=== PATIENT | male | born 1940 | race Caucasian/White ===

== ENCOUNTER 2017-12-30 11:19 | Emergency (ER) | payer OTHER ==
[2017-12-30 12:22] LABS: Urine Bacteria 20-50 /HPF (NONE SEEN); Urine Culture Reflex Order NOT NEEDED
[2017-12-30 12:31] LABS: Absolute Lymphocytes (CBC) 0.8 K/uL (0.7-4.9); Absolute Monocytes 0.7 K/uL (0.1-1.3); Absolute Neutrophil 8.6 K/uL (1.8-8.0); Basophils % 0.4 % (0-1.3); Eosinophils % 1.2 % (0-4.4); Hematocrit 44.9 % (39.6-49.0); Lymphocytes % 7.4 % (15.3-44.8); MCH 29.8 pg (27.0-35.0); MCV 87.1 fL (80-100); MPV 8.4 fL (7.6-11.3); Monocytes % 6.7 % (3.3-12.3); RBC Red Blood Cell Count 5.15 M/uL (4.33-5.43)
[2017-12-30 12:45] LABS: Potassium 3.9 mmol/L (3.5-5.1)
[2017-12-30 12:52] LABS: Urine Blood 1+ (NEG); Urine Glucose NEGATIVE (NEG); Urine Protein NEGATIVE (NEG)
--- NOTE | 2017-12-30 14:23 | ER ---
Nurse's Notes [facility] Name: Bora Stanley Age: 77 yrs Sex: Male : 1940 Arrival Date: 12/30/2017 Time: 11:22 Bed 6 Private MD: Diagnosis: Urinary Retention, UTI Presentation: 12/30 11:36 Presenting complaint: Patient states: "I think I have a urinary tract infection" aj1 Reports suprapubic pain, urinary frequency. Patient was seen at Urgent Care yesterday and diagnosed with UTI, he started taking Levaquin this morning, but states his pain and gotten worse and he feels feverish. Transition of care: patient was not received from another setting of care. Onset of symptoms was December 29, 2017. Risk Assessment: Do you want to hurt yourself or someone else? Patient reports no desire to harm self or others. Initial Sepsis Screen: Does the patient meet any 2 criteria? HR > 90 bpm. No. Patient's initial sepsis screen is negative. Does the patient have a suspected source of infection? Yes: Dysuria/Frequency/Urgency/UTI. Care prior to arrival: None. 11:36 Method Of Arrival: Ambulatory aj1 11:36 Acuity: DARIO 3 aj1 Triage Assessment: 11:41 General: Appears in no apparent distress. uncomfortable, Behavior is calm, cooperative, aj1 appropriate for age. Pain: Complains of pain in suprapubic area and pelvis Pain currently is 10 out of 10 on a pain scale. Neuro: Level of Consciousness is awake, alert, obeys commands. Cardiovascular: Patient's skin is warm and dry. Respiratory: Airway is patent Respiratory effort is even, unlabored, Respiratory pattern is regular, symmetrical. GI: Reports suprapubic pain. : Reports urinary frequency. Historical: - Allergies: 11:41 No Known Allergies; aj1 - Home Meds: 11:41 Metformin Oral [Active]; Simvastatin Oral [Active]; fenofibrate oral oral [Active]; aj1 metoprolol succinate oral oral [Active]; Ramipril Oral [Active]; clopidogrel oral oral [Active]; tamsulosin oral oral [Active]; Levaquin Oral [Active]; Zofran Oral [Active]; - PMHx: 11:41 Myocardial infarction; cardiac stent x3; Arthritis; Hyperlipidemia; Hypertension; aj1 Diabetes - NIDDM; diet controlled; - PSHx: 11:41 back surgery; aj1 - Immunization history:: Flu vaccine is up to date. - Social history:: Smoking status: Patient/guardian denies using tobacco. - Ebola Screening: : Patient denies travel to an Ebola-affected area in the 21 days before illness onset. Screenin:00 Abuse screen: Denies threats or abuse. Denies injuries from another. Nutritional bp screening: No deficits noted. Tuberculosis screening: No symptoms or risk factors identified. Fall Risk None identified. Assessment: 12:00 General: Appears in no apparent distress. uncomfortable, slender, Behavior is calm, bp cooperative, appropriate for age. Pain: Complains of pain in pelvis and suprapubic area. Neuro: Level of Consciousness is awake, alert, obeys commands, Oriented to person, place, time, situation, Appropriate for age. Cardiovascular: No deficits noted. Respiratory: Airway is patent Respiratory effort is even, unlabored, Respiratory pattern is regular, symmetrical. GI: Abdomen is non-distended, Bowel sounds present X 4 quads. Abd is soft X 4 quads. : Reports burning with urination, inability to void, urinary frequency. EENT: No deficits noted. Derm: No deficits noted. Musculoskeletal: Circulation, motion, and sensation intact. Range of motion: intact in all extremities. 13:00 Reassessment: Patient appears in no apparent distress at this time. Patient and/or family updated on plan of care and expected duration. Pain level reassessed. Patient is alert, oriented x 3, equal unlabored respirations, skin warm/dry/pink. 14:00 Reassessment: Patient appears in no apparent distress at this time. No changes from previously documented assessment. Patient and/or family updated on plan of care and expected duration. Pain level reassessed. Patient is alert, oriented x 3, equal unlabored respirations, skin warm/dry/pink. Vital Signs: 11:41 BP 148 / 87; Pulse 91; Resp 20; Temp 97.6(TE); Pulse Ox 95% on R/A; Weight 106.59 kg aj1 (R); Height 6 ft. 1 in. (185.42 cm) (R); Pain 10/10; 12:54 BP 137 / 7; Pulse 89; Resp 16; Pulse Ox 93% ; bp 11:41 Body Mass Index 31.00 (106.59 kg, 185.42 cm) aj1 ED Course: 11:22 Patient arrived in ED. tw3 11:29 Fausto Adam MD is Attending Physician. kdr 11:38 Triage completed. aj1 11:41 Arm band placed on Patient placed in an exam room. aj1 11:57 Dayday Reyna, RN is Primary Nurse. bp 12:00 Patient has correct armband on for positive identification. Bed in low position. Call bp light in reach. Side rails up X2. Adult w/ patient. 12:00 Inserted saline lock: 20 gauge in right antecubital area, using aseptic technique. bp Blood collected. 13:10 Straight cath inserted, using sterile technique, 16 Fr. Returned 800CC. Patient bp tolerated well. 14:34 No provider procedures requiring assistance completed. IV discontinued, intact, hb bleeding controlled, No redness/swelling at site. Pressure dressing applied. Administered Medications: No medications were administered Outcome: 14:23 Discharge ordered by . kdr 14:34 Discharged to home ambulatory, with significant other. hb 14:34 Condition: stable 14:34 Discharge instructions given to patient, significant other, Instructed on discharge instructions, follow up and referral plans. medication usage, Demonstrated understanding of instructions, follow-up care, medications. 14:35 Patient left the ED. hb Signatures: Jennifer Lopez RN RN aj1 Fausto Adam MD MD kdr Eda Parker RN RN hb Wade, Tia tw3 Dayday Reyna RN RN bp
--- NOTE | 2017-12-30 14:24 | EDPHYS ---
Physician Documentation [facility] Name: Bora Stanley Age: 77 yrs Sex: Male : 1940 Arrival Date: 12/30/2017 Time: 11:22 Bed 6 Private MD: ED Physician Fausto Adam HPI: 12/30 12:07 This 77 yrs old Male presents to ER via Ambulatory with complaints of kdr Abdominal Pain. 12:07 The patient presents with urinary symptoms, dribbling of urine, dysuria, urinary kdr frequency, hesitancy to initiate urine stream, unable to void. Onset: The symptoms/episode began/occurred gradually, The last few days but worse today. Modifying factors: The symptoms are alleviated by nothing, the symptoms are aggravated by urinating. Associated signs and symptoms: Pertinent positives: dysuria, fever, nausea, Most of these symptoms were yesterday - not as badtoday. Severity of symptoms: At their worst the symptoms were moderate, in the emergency department the symptoms are unchanged. The patient has experienced similar episodes in the past, a few times, with the last episode occurring 3 year(s) ago. The patient has been recently seen at an urgent care, yesterday, for similar complaints. Historical: - Allergies: 11:41 No Known Allergies; aj1 - Home Meds: 11:41 Metformin Oral [Active]; Simvastatin Oral [Active]; fenofibrate oral oral [Active]; aj1 metoprolol succinate oral oral [Active]; Ramipril Oral [Active]; clopidogrel oral oral [Active]; tamsulosin oral oral [Active]; Levaquin Oral [Active]; Zofran Oral [Active]; - PMHx: 11:41 Myocardial infarction; cardiac stent x3; Arthritis; Hyperlipidemia; Hypertension; aj1 Diabetes - NIDDM; diet controlled; - PSHx: 11:41 back surgery; aj1 - Immunization history:: Flu vaccine is up to date. - Social history:: Smoking status: Patient/guardian denies using tobacco. - Ebola Screening: : Patient denies travel to an Ebola-affected area in the 21 days before illness onset. ROS: 12:07 Constitutional: Negative for fever, chills, and weight loss, Eyes: Negative for injury, kdr pain, redness, and discharge, ENT: Negative for injury, pain, and discharge, Neck: Negative for injury, pain, and swelling, Cardiovascular: Negative for chest pain, palpitations, and edema, Respiratory: Negative for shortness of breath, cough, wheezing, and pleuritic chest pain, Back: Negative for injury and pain, MS/Extremity: Negative for injury and deformity, Skin: Negative for injury, rash, and discoloration, Neuro: Negative for headache, weakness, numbness, tingling, and seizure activity. Psych: Negative for depression, anxiety, suicide ideation, homicidal ideation, and hallucinations, Allergy/Immunology: Negative for hives, rash, and allergies, Endocrine: Negative for neck swelling, polydipsia, polyuria, polyphagia, and marked weight changes, Hematologic/Lymphatic: Negative for swollen nodes, abnormal bleeding, and unusual bruising. Exam: 12:07 Constitutional: This is a well developed, well nourished patient who is awake, alert, kdr and in no acute distress. Head/Face: Normocephalic, atraumatic. Eyes: Pupils equal round and reactive to light, extra-ocular motions intact. Lids and lashes normal. Conjunctiva and sclera are non-icteric and not injected. Cornea within normal limits. Periorbital areas with no swelling, redness, or edema. Neck: Trachea midline, no thyromegaly or masses palpated, and no cervical lymphadenopathy. Supple, full range of motion without nuchal rigidity, or vertebral point tenderness. No Meningismus. Chest/axilla: Normal chest wall appearance and motion. Nontender with no deformity. No lesions are appreciated. Cardiovascular: Regular rate and rhythm with a normal S1 and S2. No gallops, murmurs, or rubs. Normal PMI, no JVD. No pulse deficits. Respiratory: Lungs have equal breath sounds bilaterally, clear to auscultation and percussion. No rales, rhonchi or wheezes noted. No increased work of breathing, no retractions or nasal flaring. Back: No spinal tenderness. No costovertebral tenderness. Full range of motion. Skin: Warm, dry with normal turgor. Normal color with no rashes, no lesions, and no evidence of cellulitis. MS/ Extremity: Pulses equal, no cyanosis. Neurovascular intact. Full, normal range of motion. Neuro: Awake and alert, GCS 15, oriented to person, place, time, and situation. Cranial nerves II-XII grossly intact. Motor strength 5/5 in all extremities. Sensory grossly intact. Cerebellar exam normal. Normal gait. Psych: Awake, alert, with orientation to person, place and time. Behavior, mood, and affect are within normal limits. 12:07 Abdomen/GI: Inspection: abdomen appears normal, obese Bowel sounds: active, diminished. Vital Signs: 11:41 BP 148 / 87; Pulse 91; Resp 20; Temp 97.6(TE); Pulse Ox 95% on R/A; Weight 106.59 kg aj1 (R); Height 6 ft. 1 in. (185.42 cm) (R); Pain 10/10; 12:54 BP 137 / 7; Pulse 89; Resp 16; Pulse Ox 93% ; bp 11:41 Body Mass Index 31.00 (106.59 kg, 185.42 cm) aj1 MDM: 12:07 Data reviewed: vital signs, nurses notes, EMS record, lab test result(s), radiologic kdr studies. 14:23 Patient medically screened. kdr 12/30 11:59 Order name: Urine Culture bp 12/30 11:59 Order name: Urine Microscopic Only; Complete Time: 13:53 bp 12/30 11:59 Order name: Urine Dipstick-Ancillary (obtain specimen); Complete Time: 12:07 bp 12/30 12:06 Order name: CBC with Diff; Complete Time: 13:53 kdr 12/30 12:06 Order name: Chem 7; Complete Time: 13:53 kdr 12/30 12:11 Order name: Urine Dipstick--Ancillary (enter results); Complete Time: 13:53 ms 12/30 13:09 Order name: Straight Cath; Complete Time: 13:10 bp Administered Medications: No medications were administered Disposition: 12/30/17 14:23 Discharged to Home. Impression: Urinary Retention, UTI. - Condition is Stable. - Discharge Instructions: Urinary Tract Infection, Adult, [id number], Acute Urinary Retention, Male, [id number]. - Medication Reconciliation Form, Thank You Letter, Antibiotic Education form. - Follow up: Private Physician; When: 2 - 3 days; Reason: If symptoms return, Further diagnostic work-up, Recheck today's complaints, Continuance of care, Re-evaluation by your physician. - Problem is an acute exacerbation. - Symptoms are resolved. - Notes: If you continue to have difficulty urinating, please return to the emergency department for further evaluation and possible pacement of a esposito catheter. Please follow-up with Dr. Ruth at your earliest convenience. Continue on the antibiotics (Levaquin) as directed. Signatures: Dispatcher [employer] EDJennifer De La Cruz RN RN aj1 Fausto Adam MD MD reading hospital Eda Parker RN RN Dayday Reyna RN RN bp Corrections: (The following items were deleted from the chart) 13:09 12:06 Bladder Scanner ordered. kdr bp 14:35 14:23 12/30/2017 14:23 Discharged to Home. Impression: Urinary Retention, UTI. hb Condition is Stable. Forms are Medication Reconciliation Form, Thank You Letter, Antibiotic Education, Prescription Opioid Use. Follow up: Private Physician; When: 2 - 3 days; Reason: If symptoms return, Further diagnostic work-up, Recheck today's complaints, Continuance of care, Re-evaluation by your physician. Problem is an acute exacerbation. Symptoms are resolved. kdr
[2017-12-30 14:39] VITALS: TEMP 97.6
[2017-12-30 14:40] VITALS: BP 137/7; O2SAT 93
== END 2017-12-30 14:35 | disposition home or self-care (01) ==
LOC: ER 11:19
DX: N39.0 Urinary tract infection, site not specified (principal); I10 Essential (primary) hypertension; E11.9 Type 2 diabetes mellitus without complications; E78.5 Hyperlipidemia, unspecified; I25.2 Old myocardial infarction; Z95.818 Presence of other cardiac implants and grafts
CPT/HCPCS: 36415; 51702; 80048; 81003; 81015; 85025; 87086; 87088; 99283

== ENCOUNTER 2017-12-31 13:50 | Emergency (ER) | payer OTHER ==
--- NOTE | 2017-12-31 15:47 | ER ---
Nurse's Notes [facility] Name: Bora Stanley Age: 77 yrs Sex: Male : 1940 Arrival Date: 12/31/2017 Time: 13:54 Bed 6 Private MD: Richard Laughlin T Diagnosis: Retention of urine Presentation: 12/31 14:00 Presenting complaint: Patient states: "I have a urinary tract infection, and when I pee aj1 I only pee a little bit. I was here yesterday and they told me to come back if it didn't get any better.". Transition of care: patient was not received from another setting of care. Onset of symptoms was December 30, 2017. Risk Assessment: Do you want to hurt yourself or someone else? Patient reports no desire to harm self or others. Initial Sepsis Screen: Does the patient meet any 2 criteria? HR > 90 bpm. No. Patient's initial sepsis screen is negative. Does the patient have a suspected source of infection? Yes: Dysuria/Frequency/Urgency/UTI. Care prior to arrival: None. 14:00 Method Of Arrival: Ambulatory aj1 14:00 Acuity: DARIO 4 aj1 Triage Assessment: 14:02 General: Appears in no apparent distress. comfortable, Behavior is calm, cooperative, aj1 appropriate for age. Pain: Complains of pain in pelvis Pain currently is 10 out of 10 on a pain scale. Neuro: Level of Consciousness is awake, alert, obeys commands. Cardiovascular: Patient's skin is warm and dry. Respiratory: Airway is patent Respiratory effort is even, unlabored, Respiratory pattern is regular, symmetrical. Historical: - Allergies: 14:02 No Known Allergies; aj1 - Home Meds: 14:02 clopidogrel Oral [Active]; fenofibrate Oral [Active]; Levaquin Oral [Active]; Metformin aj1 Oral [Active]; metoprolol succinate Oral [Active]; Ramipril Oral [Active]; Simvastatin Oral [Active]; tamsulosin Oral [Active]; Zofran Oral [Active]; - PMHx: 14:02 Arthritis; cardiac stent x3; Diabetes - NIDDM; diet controlled; Hyperlipidemia; aj1 Hypertension; Myocardial infarction; - Immunization history:: Flu vaccine is up to date. - Social history:: Smoking status: Patient/guardian denies using tobacco. - Ebola Screening: : Patient denies travel to an Ebola-affected area in the 21 days before illness onset. Screenin:31 Abuse screen: Denies threats or abuse. Denies injuries from another. Nutritional bp screening: No deficits noted. Tuberculosis screening: No symptoms or risk factors identified. Fall Risk None identified. Assessment: 14:45 General: Appears in no apparent distress. uncomfortable, Behavior is calm, cooperative. hb Pain: Denies pain. Neuro: Level of Consciousness is awake, alert, obeys commands, Oriented to person, place, time, situation. Cardiovascular: Capillary refill < 3 seconds. Respiratory: Airway is patent Trachea midline Respiratory effort is even, unlabored, Respiratory pattern is regular, symmetrical. GI: No signs and/or symptoms were reported involving the gastrointestinal system. : Reports inability to void. EENT: No signs and/or symptoms were reported regarding the EENT system. Derm: No signs and/or symptoms reported regarding the dermatologic system. Skin is pink, warm \\T\\ dry. Musculoskeletal: No signs and/or symptoms reported regarding the musculoskeletal system. 16:00 Reassessment: Patient appears in no apparent distress at this time. Patient and/or hb family updated on plan of care and expected duration. Pain level reassessed. Patient is alert, oriented x 3, equal unlabored respirations, skin warm/dry/pink. Patient states symptoms have improved. Vital Signs: 14:02 BP 129 / 81; Pulse 94; Resp 20; Temp 97.2; Pulse Ox 95% on R/A; Weight 106.59 kg (R); aj1 Height 6 ft. 1 in. (185.42 cm) (R); Pain 10/10; 16:00 BP 126 / 80; Pulse 88; Resp 16; Pulse Ox 100% on R/A; hb 14:02 Body Mass Index 31.00 (106.59 kg, 185.42 cm) aj1 ED Course: 13:54 Patient arrived in ED. mr 13:54 Richard Laughlin MD is Private Physician. mr 14:01 Triage completed. aj1 14:02 Arm band placed on Patient placed in an exam room. aj1 14:08 Kris Prajapati PA is PHCP. jr8 14:08 Fausto Adam MD is Attending Physician. jr8 14:09 Dayday Reyna, RN is Primary Nurse. bp 14:45 Patient has correct armband on for positive identification. Bed in low position. Call hb light in reach. Side rails up X 1. 15:30 Marrero cath inserted, using sterile technique, 16 Fr., by ED staff, balloon inflated, to bp gravity drainage, returned clear yellow urine. Patient tolerated well. 15:46 Benjie Ruth MD is Referral Physician. jr8 16:08 No provider procedures requiring assistance completed. Patient did not have IV access hb during this emergency room visit. Administered Medications: No medications were administered Output: 15:49 Urine: 1200ml (Marrero); Total: 1200ml. hb Outcome: 15:46 Discharge ordered by . jr8 16:08 Discharged to home ambulatory. hb 16:08 Condition: stable 16:08 Discharge instructions given to patient, Instructed on discharge instructions, follow up and referral plans. Demonstrated understanding of instructions, follow-up care. 16:08 Patient left the ED. hb Signatures: Jennifer Lopez RN RN aj1 Lata Richmond mr Kris Prajapati PA PA jr8 Eda Parker, ALEX RN Dayday Reyna, RN RN bp
--- NOTE | 2017-12-31 15:47 | EDPHYS ---
Physician Documentation [facility] Name: Bora Stanley Age: 77 yrs Sex: Male : 1940 Arrival Date: 12/31/2017 Time: 13:54 Bed 6 Private MD: Richard Laughlin T ED Physician Fausto Adam HPI: 12/31 14:35 This 77 yrs old Male presents to ER via Ambulatory with complaints of Urinary jr8 Problem. 14:35 The patient presents with urinary symptoms, dribbling of urine, dysuria. Onset: The jr8 symptoms/episode began/occurred acutely, 2 day(s) ago. Modifying factors: The symptoms are alleviated by nothing, the symptoms are aggravated by urinating. Associated signs and symptoms: The patient has no apparent associated signs or symptoms. Severity of symptoms: At their worst the symptoms were moderate, in the emergency department the symptoms are unchanged. The patient has not experienced similar symptoms in the past. The patient has been recently seen by a physician:. Patient was seen and put on Levaquin. Came to ED for second evaluation yesterday due to dribbling of urine. Straight cathed at that time. Told to come back if worse. Stated that now he is having fullness in bladder region and still cannot urinate very well . Historical: - Allergies: 14:02 No Known Allergies; aj1 - Home Meds: 14:02 clopidogrel Oral [Active]; fenofibrate Oral [Active]; Levaquin Oral [Active]; Metformin aj1 Oral [Active]; metoprolol succinate Oral [Active]; Ramipril Oral [Active]; Simvastatin Oral [Active]; tamsulosin Oral [Active]; Zofran Oral [Active]; - PMHx: 14:02 Arthritis; cardiac stent x3; Diabetes - NIDDM; diet controlled; Hyperlipidemia; aj1 Hypertension; Myocardial infarction; - Immunization history:: Flu vaccine is up to date. - Social history:: Smoking status: Patient/guardian denies using tobacco. - Ebola Screening: : Patient denies travel to an Ebola-affected area in the 21 days before illness onset. ROS: 14:44 Eyes: Negative for injury, pain, redness, and discharge, ENT: Negative for injury, jr8 pain, and discharge, Neck: Negative for injury, pain, and swelling, Cardiovascular: Negative for chest pain, palpitations, and edema, Respiratory: Negative for shortness of breath, cough, wheezing, and pleuritic chest pain, Abdomen/GI: Negative for abdominal pain, nausea, vomiting, diarrhea, and constipation, Back: Negative for injury and pain, MS/Extremity: Negative for injury and deformity, Skin: Negative for injury, rash, and discoloration, Neuro: Negative for headache, weakness, numbness, tingling, and seizure. 14:44 : Positive for urinary symptoms, small amounts, burning with urination, difficulty urinating. Exam: 14:44 Eyes: Pupils equal round and reactive to light, extra-ocular motions intact. Lids and jr8 lashes normal. Conjunctiva and sclera are non-icteric and not injected. Cornea within normal limits. Periorbital areas with no swelling, redness, or edema. ENT: Nares patent. No nasal discharge, no septal abnormalities noted. Tympanic membranes are normal and external auditory canals are clear. Oropharynx with no redness, swelling, or masses, exudates, or evidence of obstruction, uvula midline. Mucous membranes moist. Neck: Trachea midline, no thyromegaly or masses palpated, and no cervical lymphadenopathy. Supple, full range of motion without nuchal rigidity, or vertebral point tenderness. No Meningismus. Cardiovascular: Regular rate and rhythm with a normal S1 and S2. No gallops, murmurs, or rubs. Normal PMI, no JVD. No pulse deficits. Respiratory: Lungs have equal breath sounds bilaterally, clear to auscultation and percussion. No rales, rhonchi or wheezes noted. No increased work of breathing, no retractions or nasal flaring. Abdomen/GI: Soft, non-tender, with normal bowel sounds. No distension or tympany. No guarding or rebound. No evidence of tenderness throughout. Back: No spinal tenderness. No costovertebral tenderness. Full range of motion. Skin: Warm, dry with normal turgor. Normal color with no rashes, no lesions, and no evidence of cellulitis. MS/ Extremity: Pulses equal, no cyanosis. Neurovascular intact. Full, normal range of motion. Neuro: Awake and alert, GCS 15, oriented to person, place, time, and situation. Cranial nerves II-XII grossly intact. Motor strength 5/5 in all extremities. Sensory grossly intact. Cerebellar exam normal. Normal gait. Vital Signs: 14:02 BP 129 / 81; Pulse 94; Resp 20; Temp 97.2; Pulse Ox 95% on R/A; Weight 106.59 kg (R); aj1 Height 6 ft. 1 in. (185.42 cm) (R); Pain 10/10; 16:00 BP 126 / 80; Pulse 88; Resp 16; Pulse Ox 100% on R/A; hb 14:02 Body Mass Index 31.00 (106.59 kg, 185.42 cm) aj1 MDM: 14:08 Patient medically screened. jr8 15:45 Data reviewed: vital signs, nurses notes, and as a result, I will discharge patient. jr8 Data interpreted: Pulse oximetry: on room air is 95 %. Interpretation: normal. Counseling: I had a detailed discussion with the patient and/or guardian regarding: the historical points, exam findings, and any diagnostic results supporting the discharge/admit diagnosis, the need for outpatient follow up, a urologist, to return to the emergency department if symptoms worsen or persist or if there are any questions or concerns that arise at home. Response to treatment: the patient's symptoms have markedly improved after treatment. 15:45 ED course: will continue antibiotics and wait for culture report. Will see Dr. Ruth. jr8 Until then will have esposito with leg bag . 12/31 14:28 Order name: Elida; Complete Time: 15:30 jr8 Administered Medications: No medications were administered Disposition: 16:47 Co-signature as Attending Physician, Fausto Adam MD I agree with the assessment and kdr plan of care. Disposition: 12/31/17 15:46 Discharged to Home. Impression: Retention of urine. - Condition is Stable. - Discharge Instructions: Esposito Catheter Care, Adult, Acute Urinary Retention, Male. - Medication Reconciliation Form, Thank You Letter, Antibiotic Education, Prescription Opioid Use form. - Follow up: Benjie Ruth MD; When: 1 - 2 days; Reason: Recheck today's complaints, Continuance of care, Re-evaluation by your physician. - Problem is new. - Symptoms have improved. Signatures: Jennifer Lopez RN RN aj1 Fausto Adam MD MD [facility] Kris Prajapati PA PA jr8 Eda Parker RN RN Corrections: (The following items were deleted from the chart) 16:08 15:46 12/31/2017 15:46 Discharged to Home. Impression: Retention of urine. Condition is hb Stable. Forms are Medication Reconciliation Form, Thank You Letter, Antibiotic Education, Prescription Opioid Use. Follow up: Benjie Ruth; When: 1 - 2 days; Reason: Recheck today's complaints, Continuance of care, Re-evaluation by your physician. Problem is new. Symptoms have improved. jr8
[2017-12-31 16:12] VITALS: TEMP 97.2
[2017-12-31 16:13] VITALS: BP 126/80; O2SAT 100
== END 2017-12-31 16:08 | disposition home or self-care (01) ==
LOC: ER 13:50
DX: R33.9 Retention of urine, unspecified (principal); E78.5 Hyperlipidemia, unspecified; I10 Essential (primary) hypertension; E11.9 Type 2 diabetes mellitus without complications; I25.2 Old myocardial infarction
CPT/HCPCS: 51702; 99284

== ENCOUNTER 2018-01-09 08:53 | Day surgery (SDC) | payer OTHER ==
[2018-01-08 09:14] LABS: Urine Appearance CLOUDY; Urine Bilirubin NEGATIVE (NEG); Urine Blood 2+ (NEG); Urine Color YELLOW; Urine Glucose NEGATIVE (NEG); Urine Protein 1+ (NEG); Urine Urobilinogen 0.2 mg/dL (0.2-1.0); Urine pH 5.5 (5.0-7.0)
[2018-01-08 09:19] LABS: Absolute Lymphocytes (CBC) 1.4 K/uL (0.7-4.9); Absolute Monocytes 0.4 K/uL (0.1-1.3); Absolute Neutrophil 4.1 K/uL (1.8-8.0); Basophils % 1.1 % (0-1.3); Eosinophils % 2.9 % (0-4.4); Hematocrit 44.5 % (39.6-49.0); Lymphocytes % 23.1 % (15.3-44.8); MCH 29.3 pg (27.0-35.0); MCV 88.1 fL (80-100); MPV 8.4 fL (7.6-11.3); Monocytes % 6.8 % (3.3-12.3); RBC Red Blood Cell Count 5.05 M/uL (4.33-5.43)
[2018-01-08 09:21] LABS: Protime INR 1.03
--- NOTE | 2018-01-08 09:24 | RAD REPORT ---
EXAM DESCRIPTION: RAD - Chest Pa And Lat (2 Views) - 01/08/2018 8:17 am CLINICAL HISTORY: Z01.818 Chest pain. COMPARISON: No comparisons FINDINGS: The lungs are clear. The heart is upper limit normal in size. No displaced fractures. IMPRESSION: No acute or concerning finding suspected.
[2018-01-08 09:29] LABS: Urine Microscopic Reflex ORDER UMIC
[2018-01-08 09:33] LABS: Urine Bacteria 20-50 /HPF (NONE SEEN)
[2018-01-08 09:34] LABS: Urine Culture Reflex Order NOT NEEDED
[2018-01-09] MEDS ORDERED: GENTAMICIN 100 MG/100 ML BAG 100 MG/100 ML BAG IV ONE (09:15)
[2018-01-09] MEDS ORDERED: NA CHLORIDE 0.9% 1,000 ML ONE (09:15)
[2018-01-09] MEDS ORDERED: PROPOFOL 200 MG/20 ML VIAL IV ONE (09:56)
[2018-01-09] MEDS ORDERED: FENTANYL CITR 100 MCG/2 ML ONE (09:56)
[2018-01-09] MEDS ORDERED: LIDOCAINE 2% MPF 5 ML VIAL ONE (09:57)
[2018-01-09] MEDS ORDERED: HYDROCODONE/APAP 5/325 MG TAB ONE (12:44)
[2018-01-09] MEDS ORDERED: OXYBUTYNIN CHLORIDE 5 MG TAB ONE (12:44)
[2018-01-09 13:29] VITALS: BP 136/65; TEMP 98.6; O2SAT 97
== END 2018-01-09 13:38 | disposition home or self-care (01) ==
LOC: OR 08:53
PROVIDERS: ATTEND Urology
PROC: 0VT08ZZ Resection of Prostate, Via Natural or Artificial Opening Endoscopic (ICD-10-PCS; principal; 2018-01-09 10:00)
DX: N40.1 Benign prostatic hyperplasia with lower urinary tract symptoms (principal); N39.0 Urinary tract infection, site not specified; N45.1 Epididymitis; R97.20 Elevated prostate specific antigen [PSA]; E11.9 Type 2 diabetes mellitus without complications; I10 Essential (primary) hypertension; I25.10 Atherosclerotic heart disease of native coronary artery without angina pectoris; R79.1 Abnormal coagulation profile; I25.2 Old myocardial infarction; E78.00 Pure hypercholesterolemia, unspecified; Z01.818 Encounter for other preprocedural examination; Z95.5 Presence of coronary angioplasty implant and graft; Z79.82 Long term (current) use of aspirin
CPT/HCPCS: 36415; 52601; 71046; 80048; 82962 ×2; 84153; 85025; 85610; 85730; 87086; 87088; 88305; J1580; J3010; J7030; 81003; 81015; J2704